=== PATIENT | female | born 1995 | race Caucasian/White ===

== ENCOUNTER 2017-04-28 11:40 | Emergency (ER) | payer BC ==
[~2017-04-28] VITALS: Ht 172.7 cm; Wt 69.1 kg
[2017-04-28 12:46] VITALS: BP 126/79
[2017-04-28] MEDS ORDERED: NORCO 5/3251 TABLET PO (13:25)
== END 2017-04-28 15:22 | disposition home or self-care (01) ==
LOC: EME 11:40
DX: S32.009A Unspecified fracture of unspecified lumbar vertebra, initial encounter for closed fracture (principal); V00.222A Sledder colliding with stationary object, initial encounter; Y93.23 Activity, snow (alpine) (downhill) skiing, snowboarding, sledding, tobogganing and snow tubing; Z91.040 Latex allergy status; Z88.0 Allergy status to penicillin
CPT/HCPCS: 72100; 99281; 99285; J1885